=== PATIENT | male | born 1985 | race Hispanic/Latino ===

== ENCOUNTER 2016-12-04 05:08 | Emergency (ER) | payer OTHER ==
[2016-12-04 05:50] VITALS: O2SAT 97
--- NOTE | 2016-12-04 05:59 | C.PDOC ---
History Of Present Illness 31 year old male who presents to the ER with a complaint of pain and swelling to the right thumb for the past 2 days. Patient report he woke up 2 days ago with these symptoms; denies trauma, injury, weakness, or numbness. Time Seen by Provider: 12/04/16 05:42 Chief Complaint (Nursing): Upper Extremity Problem/Injury History Per: Patient History/Exam Limitations: no limitations Onset/Duration Of Symptoms: Days Current Symptoms Are (Timing): Still Present Recent travel outside of the [place]: No Past Medical History Reviewed: Historical Data, Nursing Documentation, Vital Signs Vital Signs: Last Vital Signs Temp 98.3 F 12/04/16 06:17 Pulse 66 12/04/16 06:17 Resp 16 12/04/16 06:17 BP 133/84 12/04/16 06:17 Pulse Ox 97 12/04/16 06:52 - Medical History PMH: No Chronic Diseases Surgical History: No Surg Hx Family History: States: Unknown Family Hx - Social History Hx Alcohol Use: Yes Hx Substance Use: No - Immunization History Hx Tetanus Toxoid Vaccination: No Hx Influenza Vaccination: No Hx Pneumococcal Vaccination: No Review Of Systems Musculoskeletal: Positive for: Hand Pain Neurological: Negative for: Weakness, Numbness Physical Exam - Physical Exam Appears: Non-toxic, No Acute Distress Skin: Normal Color, Warm, Dry Head: Atraumatic, Normacephalic Eye(s): bilateral: Normal Inspection, PERRL Oral Mucosa: Moist Extremity: No Swelling, Other (Erythema from IP joint to base of nail bed of right thumb; no discoloration, fluctuance. Full ROM of right thumb intact) Pulses: Left Radial: Normal, Right Radial: Normal Neurological/Psych: Oriented x3, Normal Speech, Normal Motor, Normal Sensation ED Course And Treatment O2 Sat by Pulse Oximetry: 97 (Room air) Pulse Ox Interpretation: Normal Progress Note: Patient given Rx for antibiotics and advised to follow up with PMD or ED in 2 days for wound check. Return precautions explained and understood by pt Disposition Counseled Patient/Family Regarding: Diagnosis, Need For Followup, Rx Given - Disposition Referrals: [facility] [Outside] Disposition: HOME/ ROUTINE Disposition Time: 05:55 Condition: STABLE Additional Instructions: Warm compress or warm soaks Motrin for pain Take antibiotic prescribed Wound check in 2 days in ER or clinic Return to ER if worse Prescriptions: Cephalexin [cephalexin] 500 mg PO Q6 #20 cap Ibuprofen [Motrin] 600 mg PO Q6H #20 tab Instructions: Cellulitis (ED) Forms: [facility] (Vietnamese) - Clinical Impression Clinical Impression: Cellulitis, Pain of right thumb - Scribe Statement The provider has reviewed the documentation as recorded by the Scribgabi Mancera All medical record entries made by the Jose Armandoibgabi were at my direction and personally dictated by me. I have reviewed the chart and agree that the record accurately reflects my personal performance of the history, physical exam, medical decision making, and the department course for this patient. I have also personally directed, reviewed, and agree with the discharge instructions and disposition.
[2016-12-04 06:19] VITALS: BP 133/84; PULSE 66; RESP 16; TEMP 98.3
== END 2016-12-04 06:20 | disposition home or self-care (01) ==
LOC: C.ER 05:08
DX: L03.011 Cellulitis of right finger (principal); M79.644 Pain in right finger(s)

== ENCOUNTER 2017-08-31 10:12 | Emergency (ER) | payer OTHER ==
[2017-08-31 10:32] VITALS: BMI 33.0
--- NOTE | 2017-08-31 11:06 | C.PDOC ---
History Of Present Illness 32 y/o male c/o persistent pain and swelling to left great toes s/p ingrown toenaill surgery in apr 12 or May 14. pt has taken course of antibiotics with no improvement, no fevers. pt reports blood comes from around nail frequently, still swollen. Time Seen by Provider: 08/31/17 11:01 Chief Complaint (Nursing): Lower Extremity Problem/Injury History Per: Patient History/Exam Limitations: no limitations Onset/Duration Of Symptoms: Days (several months) Current Symptoms Are (Timing): Still Present Severity: Moderate Past Medical History Reviewed: Historical Data, Nursing Documentation, Vital Signs Vital Signs: Last Vital Signs Temp 97.9 F 08/31/17 14:02 Pulse 60 08/31/17 14:02 Resp 18 08/31/17 14:02 BP 130/74 08/31/17 14:02 Pulse Ox 97 09/02/17 18:04 - Medical History PMH: No Chronic Diseases Other Surgeries: ingrown toe nail left apr 12 or May 14 Family History: States: Unknown Family Hx - Social History Hx Alcohol Use: No Hx Substance Use: No - Immunization History Hx Tetanus Toxoid Vaccination: No Hx Influenza Vaccination: No Hx Pneumococcal Vaccination: No Review Of Systems Constitutional: Negative for: Fever, Chills Musculoskeletal: Positive for: Other (toe pain right great) Skin: Negative for: Rash Physical Exam - Physical Exam Appears: Non-toxic, No Acute Distress Skin: Warm, Dry Extremity: Other (left great toe swollen with crusted blood at lateral nail edges, +erythema. ) Pulses: Right Dorsalis Pedis: Normal Neurological/Psych: Oriented x3, Normal Speech, Normal Cognition ED Course And Treatment O2 Sat by Pulse Oximetry: 97 Medical Decision Making Medical Decision Makin am podiatry resident paged 1226 pm podiatry resident to come see pt in ed shortly. 149 pm pt seen by podiatry, had ingrown nail removed, to be d/c on augmentin, f/ u next thu with dr kong Disposition Discussed With : Sandra Kong Doctor Will See Patient In The: Office Counseled Patient/Family Regarding: Diagnosis, Need For Followup, Rx Given - Disposition Referrals: Sandra Kong DPM [Staff Provider] - Disposition: HOME/ ROUTINE Disposition Time: 13:52 Condition: IMPROVED Additional Instructions: Please follow wound care instructions given to you. Please take antibiotics until completed,. Call Dr Kong's office to make follow up appointment for next Thu. [phone]. Tylenol or Motrin for pain. Prescriptions: Amoxicillin/Clavulanate [Augmentin 875 MG-125 MG] 1 tab PO BID #20 tab Instructions: Ingrown Toenail Removal Forms: [facility] (Swazi) - Clinical Impression Clinical Impression: Ingrown left big toenail
[2017-08-31] MEDS ORDERED: Lidocaine 1% Inj (20ml) INFIL ONE (12:46)
--- NOTE | 2017-08-31 12:49 | CP.PCM.CON ---
History of Present Illness - History of Present Illness History of Present Illness: Consult note for Dr. Kong 32 year old male who denies any PMHx was seen at bedside in ED for complaint of left hallux ingrown toenail. He states that he previously had a nail procedure on his left hallux in April. He states that he followed up with his DrMilka for a few months. In the past few days, he has noticed pain with blood and pus coming from his left great toe. Currently denies any n/v/f/c/sob/cp. Past Patient History - Past Social History Smoking Status: Never Smoked - PSYCHIATRIC Hx Substance Use: No - SURGICAL HISTORY Hx Surgeries: No - ANESTHESIA Hx Anesthesia: No Meds Allergies/Adverse Reactions: Allergies Allergy/AdvReac Type Severity Reaction Status Date / Time No Known Allergies Allergy Verified 08/31/17 10:31 Physical Exam - Constitutional Appears: Well, Non-toxic, No Acute Distress - Extremities Exam Additional comments: lower extremity focused exam: Vasc: DP and PT pulses palpable 2/4 b/l. CFT < 3 seconds to all digits b/l. SKin temperature warm to warm from proximal to distal b/l, with increase in warmth noted to left hallux. Neuro: gross sensation intact b/l. Ortho: tenderness on palpation to left hallux Derm: left hallux is edematous and erythematous with dried sanginous drainaged noted, no malodor, no purulent drainage noted. left Medial and lateral nail borders are ingrown. - Neurological Exam Neurological exam: Alert, Oriented x3 - Psychiatric Exam Psychiatric exam: Normal Affect, Normal Mood Results - Vital Signs Recent Vital Signs: Last Vital Signs Temp 98.8 F 08/31/17 10:32 Pulse 67 08/31/17 10:32 Resp 20 08/31/17 10:32 BP 125/77 08/31/17 10:32 Pulse Ox 97 08/31/17 12:32 Assessment & Plan - Assessment and Plan (Free Text) Assessment: 32 year old male with left hallux ingrown toenail Plan: patient examined and evaluated discussed in detail with attending, Dr. Kong chart and vitals reviewed consent obtained and left hallux anesthized with 6 mL of 1% lidocaine, hallux was cleasned with betadine, using a freer the nail was freed from the nail bed and utilizing a hemostat the nail was removed and passed off the field, wound was dressed with bacitrain, 4x4, cling. patient to keep dressing c/d/i for 24 hours may then dress with bacitracin and bandaid patient to soak in warm water with epsom salts for 15 mintues patient to follow up with Dr. Kong in office next week
[2017-08-31] MEDS ORDERED: Bacitracin 500 Units/gm Oint Foilpak UD ONE (13:14)
[2017-08-31 14:04] VITALS: BP 130/74; PULSE 60; RESP 18; TEMP 97.9
[2017-09-02 18:04] VITALS: O2SAT 97
== END 2017-08-31 14:04 | disposition home or self-care (01) ==
LOC: C.ER 10:12
DX: L60.0 Ingrowing nail (principal)